=== PATIENT | male | born 1960 | race Caucasian/White ===

== ENCOUNTER → 2022-04-29 | Outpatient (CLI) | payer BC ==
[~2022-04-29] MED LIST: Bactrim Ds Tab1 EACH PO; Crutch1 EACH MISC; DIAZ5 PO; HYDACE5 PO; IBUP600 PO; OXYACE5T PO; PRAV20 PO; Ultram50 MG PO
[2022-04-30 10:22] LABS: Stool Occult Bld Immuno 1 Negative (NEGATIVE)
== END | disposition home or self-care (01) ==
LOC: LAB 12:25 → LAB SHORT 12:25
PROVIDERS: Family Medicine
DX: Z12.11 Encounter for screening for malignant neoplasm of colon (principal)
CPT/HCPCS: G0328